=== PATIENT | female | born 1985 | race Caucasian/White ===

== ENCOUNTER 2023-09-10 16:21 | Emergency (ER) | payer SELFPAY ==
[2023-09-10 16:23] VITALS: BP 120/80
[2023-09-10 18:39] VITALS: BP 124/76
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
== END 2023-09-10 19:34 | disposition home or self-care (01) ==
LOC: EMR 16:21
PROVIDERS: EMERGENCY PHYSICIAN Emergency Medicine
DX: S00.03XA Contusion of scalp, initial encounter (principal); Y04.8XXA Assault by other bodily force, initial encounter; Y99.0 Civilian activity done for income or pay
CPT/HCPCS: 99283